=== PATIENT | female | born 1975 | race Caucasian/White ===

== ENCOUNTER → 2016-09-20 | Outpatient (CLI) | payer BC | LOC: MRI 09:45 | DX: G43.909 Migraine, unspecified, not intractable, without status migrainosus (principal); R26.0 Ataxic gait; R51 Headache; R11.2 Nausea with vomiting, unspecified; I10 Essential (primary) hypertension | CPT/HCPCS: 70544 ==

== ENCOUNTER → 2016-10-18 | Outpatient (CLI) | payer BC ==
[2016-10-18 08:17] LABS: HEMOGLOBIN 14.2 gm/dl (12.3-15.3); RED BLOOD COUNT 5.15 M/UL (4.00-5.10); WHITE BLOOD COUNT 6.4 K/UL (4.5-11.0)
[2016-10-18 08:33] LABS: BUN/CREATININE RATIO 25 (0-10)
== END ==
LOC: LAB 07:48
PROVIDERS: Internal Medicine
DX: E11.65 Type 2 diabetes mellitus with hyperglycemia (principal)
CPT/HCPCS: 36415; 80048; 80061; 80076; 82043; 82570; 83036; 84443; 85025

== ENCOUNTER → 2020-06-27 | Day surgery (SDC) | payer BC ==
[~2020-06-27] MED LIST: ACCUPRIL20 MG PO; AMARYL 2MG TABLE2 MG PO; CRESTOR10 MG PO; FLEXERIL 10 MG10 MG PO; JARDIANCE25 MG PO; NORCO 5-325 TA1 EACH PO; OZEMPIC1 MG/0.75 SQ; SYNTHROID125 MCG PO; VICTOZA 3-0.6 MG/0.1 SQ; ZOFRAN4 MG PO
== END | disposition home or self-care (01) ==
LOC: OR 06:04
PROVIDERS: Surgery
PROC: 0DBE8ZX Excision of Large Intestine, Via Natural or Artificial Opening Endoscopic, Diagnostic (ICD-10-PCS; principal; 2020-06-27 07:30)
DX: Z12.11 Encounter for screening for malignant neoplasm of colon (principal); K63.89 Other specified diseases of intestine; I10 Essential (primary) hypertension; E78.5 Hyperlipidemia, unspecified; E66.01 Morbid (severe) obesity due to excess calories; M19.90 Unspecified osteoarthritis, unspecified site; E03.9 Hypothyroidism, unspecified; G43.709 Chronic migraine without aura, not intractable, without status migrainosus; E11.42 Type 2 diabetes mellitus with diabetic polyneuropathy; Z88.5 Allergy status to narcotic agent; Z88.8 Allergy status to other drugs, medicaments and biological substances; Z79.84 Long term (current) use of oral hypoglycemic drugs; Z79.899 Other long term (current) drug therapy
CPT/HCPCS: J2250; J2704; J7030

== ENCOUNTER → 2020-09-12 | Outpatient (CLI) | payer BC | LOC: DTC 12:27 | DX: E11.9 Type 2 diabetes mellitus without complications (principal) | CPT/HCPCS: G0108 ==

== ENCOUNTER → 2020-10-10 | Outpatient (CLI) | payer BC ==
[2020-10-10 07:45] LABS: HEMOGLOBIN 14.1 gm/dl (12.3-15.3); RED BLOOD COUNT 4.86 M/UL (4.00-5.10); WHITE BLOOD COUNT 3.8 K/UL (4.5-11.0)
[2020-10-10 08:08] LABS: BUN/CREATININE RATIO 29 (0-10)
== END ==
LOC: LAB 07:15
PROVIDERS: Internal Medicine
DX: E11.9 Type 2 diabetes mellitus without complications (principal)
CPT/HCPCS: 36415; 80048; 80061; 80076; 83036; 84443; 85025

== ENCOUNTER → 2020-10-15 | Outpatient (CLI) | payer BC | LOC: RAD 11:14 | DX: M25.511 Pain in right shoulder (principal) | CPT/HCPCS: 73030 ==

== ENCOUNTER → 2020-11-21 | Outpatient (CLI) | payer BC | LOC: KOH-I 13:28 | DX: M25.511 Pain in right shoulder (principal); R93.7 Abnormal findings on diagnostic imaging of other parts of musculoskeletal system | CPT/HCPCS: 73221 ==

== ENCOUNTER → 2021-01-28 | Outpatient (CLI) | payer BC ==
[2021-01-28 08:17] LABS: HEMOGLOBIN 15.5 gm/dl (12.3-15.3); RED BLOOD COUNT 5.2 M/UL (4.00-5.10); WHITE BLOOD COUNT 7.2 K/UL (4.5-11.0)
[2021-01-28 08:40] LABS: BUN/CREATININE RATIO 20 (0-10)
== END ==
LOC: LAB 07:42
PROVIDERS: Internal Medicine
DX: E78.2 Mixed hyperlipidemia (principal)
CPT/HCPCS: 36415; 80048; 80061; 80076; 83036; 84443; 85025

== ENCOUNTER → 2021-02-27 | Outpatient (CLI) | payer BC | LOC: MAMO 08:29 | DX: Z12.31 Encounter for screening mammogram for malignant neoplasm of breast (principal) | CPT/HCPCS: 77063; 77067 ==

== ENCOUNTER → 2021-05-12 | Outpatient (CLI) | payer BC ==
[2021-05-12 11:54] LABS: HEMOGLOBIN 15.6 gm/dl (12.3-15.3); RED BLOOD COUNT 5.34 M/UL (4.00-5.10); WHITE BLOOD COUNT 4.9 K/UL (4.5-11.0)
[2021-05-12 12:10] LABS: BUN/CREATININE RATIO 18 (0-10)
== END ==
LOC: LAB 11:06
PROVIDERS: Internal Medicine
DX: E11.65 Type 2 diabetes mellitus with hyperglycemia (principal)
CPT/HCPCS: 36415; 80048; 80061; 80076; 83036; 84443; 85025

== ENCOUNTER → 2021-08-26 | Outpatient (CLI) | payer BC ==
[2021-08-26 12:32] LABS: HEMOGLOBIN 14.6 gm/dl (12.3-15.3); RED BLOOD COUNT 5.18 M/UL (4.00-5.10); WHITE BLOOD COUNT 4.8 K/UL (4.5-11.0)
[2021-08-27 07:11] LABS: HEMOGLOBIN A1C 7.2 % (4.8-5.6)
[2021-08-27 08:15] LABS: BILIRUBIN, DIRECT 0.16 mg/dL (0.00-0.40); BILIRUBIN, TOTAL 0.5 mg/dL (0.0-1.2); CALCIUM, SERUM 9.3 mg/dL (8.7-10.2); CREATININE, SERUM 0.72 mg/dL (0.57-1.00); POTASSIUM, SERUM 4.4 mmol/L (3.5-5.2); PROTEIN, TOTAL 6.8 g/dL (6.0-8.5); TSH 1.98 uIU/mL (0.450-4.500)
[2021-08-27 11:15] LABS: CREATININE, URINE 109.9 mg/dL (Not Estab.)
== END ==
LOC: LAB 10:55
PROVIDERS: Internal Medicine
DX: E11.9 Type 2 diabetes mellitus without complications (principal)
CPT/HCPCS: 36415; 80048; 80061; 80076; 82043; 82570; 83036; 84443; 85025

== ENCOUNTER → 2021-12-23 | Outpatient (CLI) | payer BC ==
[2021-12-23 12:30] LABS: RED BLOOD COUNT 5.17 M/UL (4.00-5.10); WHITE BLOOD COUNT 4.8 K/UL (4.5-11.0)
[2021-12-23 13:04] LABS: BUN/CREATININE RATIO 25 (0-10)
== END ==
LOC: LAB 11:51
PROVIDERS: Internal Medicine
DX: E11.65 Type 2 diabetes mellitus with hyperglycemia (principal)
CPT/HCPCS: 36415; 80048; 80061; 80076; 83036; 84443; 85025